=== PATIENT | male | born 1970 | race Caucasian/White ===

== ENCOUNTER 2020-04-13 19:30 | Emergency (ER) | payer SELFPAY ==
[~2020-04-13] VITALS: Ht 170.2 cm; Wt 88.5 kg
[2020-04-13 19:32] VITALS: BP 127/81; Ht 170.2 cm; Wt 88.5 kg
== END 2020-04-13 20:46 | disposition home or self-care (01) ==
LOC: ED 19:30
DX: U07.1 COVID-19 (principal); B34.9 Viral infection, unspecified
CPT/HCPCS: U0003